=== PATIENT | male | born 1970 | race Caucasian/White ===

== ENCOUNTER → 2023-09-15 09:12 | Outpatient (REF) | payer BC, SELFPAY | LOC: HWRAD 09:12 | PROVIDERS: ATTENDING PHYSICIAN Urology; FAMILY PHYSICIAN Family Medicine | DX: N28.89 Other specified disorders of kidney and ureter (principal); C64.1 Malignant neoplasm of right kidney, except renal pelvis | CPT/HCPCS: 74178; Q9967 ==

== ENCOUNTER → 2024-01-09 06:33 | Day surgery (SDC) | payer BC, SELFPAY | LOC: GI 06:33 | PROVIDERS: ATTENDING PHYSICIAN Internal Medicine Gastroenterology; FAMILY PHYSICIAN Family Medicine | DX: K64.0 First degree hemorrhoids (principal); K64.4 Residual hemorrhoidal skin tags; K51.20 Ulcerative (chronic) proctitis without complications; K51.40 Inflammatory polyps of colon without complications; K51.00 Ulcerative (chronic) pancolitis without complications | CPT/HCPCS: 45331; 88305 ==

== ENCOUNTER 2024-07-18 06:23 | Day surgery (SDC) | payer BC, SELFPAY | END 2024-07-18 11:37 | disposition home or self-care (01) | LOC: GI 06:23 | PROVIDERS: ATTENDING PHYSICIAN Internal Medicine Gastroenterology | DX: K51.00 Ulcerative (chronic) pancolitis without complications (principal); K64.0 First degree hemorrhoids; K51.40 Inflammatory polyps of colon without complications | CPT/HCPCS: 45385; 45380; 88305 ==

== ENCOUNTER → 2024-09-03 11:11 | Outpatient (REF) | payer BC, SELFPAY | LOC: RAD 11:11 | PROVIDERS: ATTENDING PHYSICIAN Urology; FAMILY PHYSICIAN Family Medicine | DX: N28.89 Other specified disorders of kidney and ureter (principal); C64.1 Malignant neoplasm of right kidney, except renal pelvis | CPT/HCPCS: 71270; 74170; Q9967 ==